=== PATIENT | female | born 1995 | race Caucasian/White ===

== ENCOUNTER 2017-07-25 14:08 | Emergency (ER) | END 2017-07-25 16:19 | disposition home or self-care (01) ==

== ENCOUNTER 2018-02-08 18:18 | Emergency (ER) | END 2018-02-08 22:11 | disposition home or self-care (01) ==

== ENCOUNTER 2018-02-10 21:21 | Emergency (ER) | END 2018-02-11 03:27 | disposition home or self-care (01) ==

== ENCOUNTER 2018-02-13 17:38 | Inpatient (IN) | payer OTHER ==
[~2018-02-13] VITALS: Ht 162.6 cm; Wt 66.8 kg
[~2018-02-13 17:38] MED LIST: ACET500C5 PO; MUPI22OI2 TOP; PREN-93 PO
--- NOTE | 2018-02-13 19:57 | ERD ---
ER Documentation Chief Complaint Chief Complaint recheck for ectopic seen here on the 02/10 HPI This is a 22-year-old female who was seen here on February 10 and diagnosed with ectopic . Dr. feliciano saw her and gave her methotrexate. She is here again for recheck. She states she has no pain. No vaginal bleeding. No fever. No nausea or vomiting. ROS All systems reviewed and are negative except as per history of present illness. Medications Home Meds Active Scripts Vit No.124/Iron/FA ( Vitamin Tablet) 1 Each Tablet, 1 EACH PO DAILY, #30 TAB Prov:NILESHILABANTELMAAR F 02/11/18 Acetaminophen* (Tylophen*) 500 Mg Capsule, 1 CAP PO Q6H PRN for PAIN AND OR ELEVATED TEMP, #20 CAP Prov:PASILABAN,TELMAAR F 02/11/18 Acetaminophen* (Tylophen*) 500 Mg Capsule, 1 CAP PO Q6H PRN for PAIN AND OR ELEVATED TEMP, #15 CAP Prov:SON SCHULTZ MD 02/08/18 Mupirocin* (Bactroban*) 2% -22 Gram Oint...g., 1 APPLIC TOP BID for 7 Days, EA Prov:CARI,LAURENCE C 07/25/17 Allergies Allergies: Coded Allergies: No Known Drug Allergies (Verified Allergy, Unknown, 07/25/17) PMhx/Soc History of Surgery: No (c section x1 ) Anesthesia Reaction: No Hx Neurological Disorder: No Hx Respiratory Disorders: No Hx Cardiac Disorders: No Hx Psychiatric Problems: No Hx Miscellaneous Medical Probl: Yes (ECZEMA) Hx Alcohol Use: No Hx Substance Use: Yes (marijuana ) Hx Tobacco Use: No Smoking Status: Never smoker FmHx Family History: No diabetes Physical Exam Vitals Vital Signs Date Temp Pulse Resp B/P (MAP) Pulse Ox O2 O2 Flow FiO2 Time Delivery Rate 02/13/18 97.6 100 18 117/76 98 17:39 (90) Physical Exam Const: No acute distress Head: Atraumatic Eyes: Normal Conjunctiva ENT: Normal External Ears, Nose and Mouth. Neck: Full range of motion. No meningismus. Resp: Clear to auscultation bilaterally Cardio: Regular rate and rhythm, no murmurs Abd: Soft, non tender, non distended. Results 24 hrs Laboratory Tests Test 02/13/18 18:04 Beta HCG, Quantitative 7716.4 mIU/ml Current Medications Medications Dose Sig/Carmen Start Time Status Last (Trade) Ordered Route PRN Stop Time Admin Dose Reason Admin 1,000 ml @ Q8H IV 02/13/18 Dextrose/Lact 125 mls/hr 23:00 ated Ringer's Procedures/MDM Patient is here for ectopic . She was seen here on [place] for the same. On the her beta hCG was 3668.8 and today it is increased to 7716.4. Ultrasound today continues to show what is most likely an ectopic . I called Dr. zaragoza who states she would come in to see the patient. Dr Feliciano is at bedside with patient and will admit the patient. Departure Diagnosis: Primary Impression: Ectopic Condition: Serious SAL CAI PA-C Feb 13, 2018 19:57
[2018-02-13] MEDS ORDERED: CEFAZOLIN 2 GM/50 ML (PMX) 50 ML IVPB ONE (23:30)
--- NOTE | 2018-02-13 23:35 | CONS ---
Date/Time of Note Date/Time of Note DATE: 02/13/18 TIME: 23:10 Assessment/Plan Assessment/Plan Assessment/Plan 22 years old 2 para 1001 with left ectopic . Patient is currently hemodynamically stable. Her exam is unremarkable, there is no abdominal or pelvic pain or tenderness. She has received 1 dose of methotrexate on 02/10/2018, back to emergency department for follow-up lab. She is currently hemodynamically stable and has no abdominal or pelvic pain. Labs, ultrasound discussed in detail with patient and her partner. Both expressed understanding. All of their questions answered. She admitted to [facility] for performing operative laparoscopy, left salpingostomy or salpingectomy tomorrow. CBC, blood type and screen ordered. Repeat beta-hCG tomorrow morning. Risks of surgery including but not limited to bleeding infection injury to other organs including bowel bladder ureter vessel nerves, blood transfusion, blood transfusion related infection, removal of fallopian tube, possible hysterectomy, any other indicated surgery discussed with patient and her partner. Both expressed understanding, repeat the risks. All of their questions answered. As she is hemodynamically stable she is scheduled for surgery tomorrow at 07:30. Results 24hrs Laboratory Tests Test 02/13/18 18:04 Beta HCG, Quantitative 7716.4 Consultation Date/Type/Reason Admit Date/Time 02/13/2018 Date of Consultation: Feb 13, 2018 Type of Consult Gynecology consult Reason for Consultation Possible ectopic Requesting Provider: SAL CAI PA-C Hx of Present Illness Hx of Present Illness 22 years old 2 para 1001 presented to emergency department for follow-up labs and ultrasound. She was seen at the emergency department on 02/08/2018 and 02/10/2018. She currently states has some nausea. She denies vomiting, shortness of breath, chest pain, headache, vaginal bleeding, any urinary or GI symptoms. She states had a delivery 5 years ago, used Mirena IUD for 5 years and then Jamila IUD inserted in July 2017. LMP is unknown in summary: 02/08/2018: Beta hCG was 2168 02/10/2018: Beta hCG was 3668 02/13/2018: Beta-hCG is 7716 Ultrasound on 02/08/2018: There is no visible intrauterine gestational sac. There is an intrauterine contraceptive device in place, appearing to lie in appropriate position. The right ovary measures 3.3 x 2.5 x 2.3 cm and the left ovary 2.4 x 1.9 x 1.4 cm. Blood flow is evident in both ovaries. No ovarian or adnexal mass or cystic lesion is seen. There is no free fluid. IMPRESSION: 1. No identifiable intrauterine . 2. Intrauterine contraceptive device in typical position. 3. Sonographically unremarkable ovaries and adnexa. Ultrasound on 02/10/18: - 1.0 cm thick-walled cystic structure in the left adnexa which appears to contain a yolk sac. This is suspicious for a tubal ectopic . - Intrauterine device in place within the endometrial canal. There is no intrauterine . No free fluid. Ultrasound on 02/13/2018: FINDINGS: There is no intrauterine gestational sac. The uterus measures 8.9 x 4.5 x 6.4 cm. The IUD is once again noted within the endometrial canal. A thick-walled cystic structure is present in the left adnexa measuring 1.3 x 1.2 x 1.6 cm. Possible yolk sac is once again noted within the gestational sac measuring 0.9 x 0.6 x 1.0 cm. There is no pole visualized. The right ovary appears normal measuring 3.3 x 2.0 x 1.8 cm. The left ovary appears normal measuring 2.8 x 1.8 x 1.3 cm. Color Doppler and pulsed Doppler sonography demonstrate normal flow to the ovaries. There is no other pelvic mass. A small amount of free fluid is present in the cul-de-sac. IMPRESSION: 1. No intrauterine gestational sac. 2. IUD within the endometrial canal. 3. Probable left adnexal ectopic gestation as seen previously. No pole visualized. 4. Small amount of free fluid in the cul-de-sac. Constitutional: no complaints Additional Comments Review of all systems is negative Past Medical History Medications Current Medications Dextrose/Lactated Ringer's 1,000 ml @ 125 mls/hr Q8H IV ; Start 02/13/18 at 23:00 Allergies: Coded Allergies: No Known Drug Allergies (Verified Allergy, Unknown, 07/25/17) Past Surgical History Past Surgical Hx: other ( delivery) Family History Significant Family History: no pertinent family hx Social History Alcohol Use: none Smoking Status: Never smoker Drug Use: none Exam/Review of Systems Vital Signs Vitals Vital Signs Date Temp Pulse Resp B/P (MAP) Pulse Ox O2 O2 Flow FiO2 Time Delivery Rate 02/13/18 97.6 100 18 117/76 98 17:39 (90) Exam Constitutional: alert, oriented Psych: no complaints, nl mood/affect Head: normocephalic, atraumatic Neck: supple, non-tender Respiratory: clear to auscultation Cardiovascular: regular rate and rhythm Gastrointestinal: nl liver, spleen, ascites Genitourinary - Female: other (External genitalia within normal limits. Vagina normal, no bleeding noted. Cervix there is a IUDs string. Uterus top normal, mobile. Adnexa no palpable mass bilateral.) Medications Medications Current Medications Dextrose/Lactated Ringer's 1,000 ml @ 125 mls/hr Q8H IV ; Start 02/13/18 at 23:00 EDU HERNANDEZ Feb 13, 2018 23:20
[2018-02-14] VITALS (18 sets, daily range): BP systolic 100–124; BP diastolic 56–77; PULSE 67–104; RESP 13–25; Ht 162.6 cm; Wt 66.8 kg
--- NOTE | 2018-02-14 00:20 | NUR ---
Admitted 22 y/o female for Dx: Ectopic . NO sob, No resp distress. Afebrile. Denies pain/discomfort. No N/V. Pt oriented to environment, visitation policy, use of telephone and call light. Skin assessment per policy. Called Dr. Sal and made aware of admission. Also to clarify IVF and ATB, per MD start D5Lr @ 125ml/hr and to give the order ATB prior to SX in am (OR). Pt NPO for Operative Laparoscopy, Left salpingostomy or Salpingectomy , pt understand diet. Needs attended and anticipated. Call light within reach. Will continue to monitor pt.
[2018-02-14] MEDS: DEXTROSE 5%-LR 1,000 ML IV SCH ×2 (01:09→07:00)
--- NOTE | 2018-02-14 06:20 | NUR ---
End of shift Report Sleeping on bed in comfortable position. No sob. No resp distress. Afebrile. Denies pain. NPO maintained. For procedure today Operative Laparoscopy, Left Salpingostomy or Salpingectomy with consent. No acute events overnight. Needs attended and anticipated. Will continue to monitor pt. Call light within reach. Will endorse accordingly.
--- NOTE | 2018-02-14 06:56 | NUR ---
Picked up by transporter for procedure today via gurney. Report given to OR Nurse. Preop checklist done. IV line @ Left AC G20 intact and patent. Pt belongings kept at pt room (drawer) will endorse to am shift nurse. Pre op med (Anzef 2G IV ) attached to chart with pt.
[2018-02-14] MEDS ORDERED: DESFLURANE 15 MIN ONE (07:00)
[2018-02-14] MEDS ORDERED: SUCCINYLCHOLINE CHLORIDE 100 MG/5 ML SYG IV ONE ×2 (07:00→09:43)
--- NOTE | 2018-02-14 07:26 | PREAC ---
Date/Time of Note Date/Time of Note DATE: 02/14/18 TIME: 07:25 Anesthesia Eval and Record Evaluation Time Pre-Procedure Interview DATE: 02/14/18 TIME: 07:25 Age 22 Sex female NPO: 8 hrs Preoperative diagnosis Ectopic Planned procedure Laprascopic Salphingectomy Past Medical History Past Medical History: Includes Heme: Anemia Surgery & Anesthesia Issues No known issue Meds Anticoagulation: No Beta Art within 24 hr: No Reason Beta Art not given: Pt. not on B-Art Active Scripts Vit No.124/Iron/FA ( Vitamin Tablet) 1 Each Tablet, 1 EACH PO DAILY, #30 TAB Prov:PASILABANTELMAAR F 02/11/18 Acetaminophen* (Tylophen*) 500 Mg Capsule, 1 CAP PO Q6H PRN for PAIN AND OR EL EVATED TEMP, #20 CAP Prov:PASILABAN,TELMAAR F 02/11/18 Acetaminophen* (Tylophen*) 500 Mg Capsule, 1 CAP PO Q6H PRN for PAIN AND OR ELEVATED TEMP, #15 CAP Prov:SON SCHULTZ MD 02/08/18 Mupirocin* (Bactroban*) 2% -22 Gram Oint...g., 1 APPLIC TOP BID for 7 Days, EA Prov:LAURENCE ALCALA 07/25/17 Current Medications Dextrose/Lactated Ringer's 1,000 ml @ 125 mls/hr Q8H IV Last administered on 02/14/18at 01:09; Admin Dose 125 MLS/HR; Start 02/13/18 at 23:00 Influenza Virus Vaccine Quadrival (Fluzone) 0.5 ml ONCE ONCE IM* ; Start 02/15/18 at 10:00; Stop 02/15/18 at 10:01 Meds reviewed: Yes Allergies Coded Allergies: No Known Drug Allergies (Verified Allergy, Unknown, 07/25/17) Allergies Reviewed: Yes Labs/Studies Labs Reviewed: Reviewed by anesthesiologist Result Diagram: 02/14/18 0054 Laboratory Tests 02/14/18 00:54 test: Positive Pre-procedure Exam Last vitals Vital Signs Date Temp Pulse Resp B/P (MAP) Pulse Ox O2 O2 Flow FiO2 Time Delivery Rate 02/14/18 99.1 71 18 100/58 100 02:18 (72) 12/28/18 Room Air 23:18 Airway: Adequate mouth opening, Adequate thyromental dist Mallampati: Mallampati II Teeth: Normal Lung: Normal Heart: Normal ASA Physical Status ASA physical status: 2 Emergency: E Planned Anesthetic General/MAC: ETT Nerve block: TAP (bilateral) Pre-operative Attestations Prior to commencing anesthesia and surgery, the patient was re-evaluated, there was verification of: *The patient's identity *The results of appropriate recent lab work and preoperative vital signs *The above evaluation not changing prior to induction *Anesthetic plan, risk benefits, alternative and complications discussed with patient/family; questions answered; patient/family understands, accepts and wishes to proceed. MICHELLE PRINCE Feb 14, 2018 07:26
[2018-02-14] MEDS ORDERED: MEPERIDINE 25 MG INJ IV PRN (07:30)
[2018-02-14] MEDS ORDERED: ONDANSETRON 4 MG INJ IV PRN (07:30)
[2018-02-14] MEDS ORDERED: DIPHENHYDRAMINE 50 MG INJ IV PRN (07:30)
[2018-02-14] MEDS ORDERED: FENTAnyl 50 MCG/ML VIAL IV PRN ×3 (07:30)
[2018-02-14] MEDS ORDERED: METOCLOPRAMIDE 10 MG INJ IV PRN (07:30)
[2018-02-14] MEDS ORDERED: HYDROmorphONE 1 MG/5 ML IV SYRINGE IV PRN ×3 (07:30)
[2018-02-14] MEDS ORDERED: ALBUTEROL 0.083% (NEB) 2.5 MG/3 ML AMP HHN PRN (07:30)
--- NOTE | 2018-02-14 07:58 | QN ---
Documentation Comment 22 years old 2 para 1001 with left ectopic . Patient is currently hemodynamically stable. She signed informed consent for operative laparoscopy possible laparotomy,left salpingostomy or salpingectomy or any other indicated surgery. Risks of surgery including but not limited to bleeding infection injury to other organs including bowel bladder ureter vessel nerves, blood transfusion, blood transfusion related infection, removal of fallopian tube, possible hysterectomy, any other indicated surgery discussed with patient and her partner. Both expressed understanding, repeat the risks. All of their questions answered. EDU HERNANDEZ Feb 14, 2018 07:58
[2018-02-14] MEDS ORDERED: ROPIVACAINE 0.5 % 30 ML VIAL ONE (08:04)
[2018-02-14] MEDS ORDERED: FENTAnyl 50 MCG/ML VIAL ONE (08:04)
[2018-02-14] MEDS ORDERED: BUPIVACAINE 0.5% (SDV) 30 ML INJ ONE (08:36)
--- NOTE | 2018-02-14 09:37 | NUR ---
nursing rr Received pt from or not in any distress pt has lap incision to abdomen with bandage clean and dry .Peripad clean no bleeding noted at this time .iv to left ac g20 needle with lr infusing well .Pt has f/c to gravity with clear yellow urine .
[2018-02-14] MEDS ORDERED: GLYCOPYRROLATE 0.4 MG INJ ONE (09:43)
[2018-02-14] MEDS ORDERED: NEOSTIGMINE 3 MG/3 ML SYRINGE ONE (09:43)
[2018-02-14] MEDS ORDERED: LIDOCAINE 100 MG SYRINGE ONE (09:43)
[2018-02-14] MEDS ORDERED: ROCURONIUM 50 MG INJ ONE (09:43)
[2018-02-14] MEDS ORDERED: CEFAZOLIN 1 GM INJ ONE (09:43)
[2018-02-14] MEDS ORDERED: PROPOFOL 20 ML ONE (09:43)
[2018-02-14] MEDS ORDERED: HYDROCODONE/APAP (5/325) TAB PO PRN (10:30)
--- NOTE | 2018-02-14 10:43 | PAC ---
Date/Time of Note Date/Time of Note DATE: 02/14/18 TIME: 10:43 Post-Anesthesia Notes Post-Anesthesia Note Last documented vital signs Vital Signs Date Temp Pulse Resp B/P (MAP) Pulse Ox O2 O2 Flow FiO2 Time Delivery Rate 02/14/18 68 14 124/77 100 Room Air 10:30 (93) 02/14/18 2.0 10:02 02/14/18 98.8 09:58 Activity: WNL Respiratory function: WNL Cardiovascular function: WNL Mental status: Baseline Pain reasonably controlled: Yes Hydration appropriate: Yes Nausea/Vomiting absent: Yes MICHELLE PRINCE Feb 14, 2018 10:43
--- NOTE | 2018-02-14 10:58 | NUR ---
transfer Pt transfer back to room in stable condition ,report given to RN care provided per [facility] standards.
--- NOTE | 2018-02-14 11:10 | NUR ---
Received patient from PACU s/p laparoscopic,and irrigation of left fallopian tube, awake alert, denies pain. Vitals stable, due to void. will start clear liquid diet.
[2018-02-14] MEDS ORDERED: IBUPROFEN 800 MG TAB GTB SCH (14:00)
--- NOTE | 2018-02-14 16:53 | NUR ---
Patient voided in the restroom, tolerated diet, no diZziness, no vomiting noted., vitals stable.
--- NOTE | 2018-02-14 17:30 | NUR ---
PATIENT IS DOING MINGO, NO NAUSEA/ VOMITING NOTED. TOLERATED DIET. PAIN IS TOLERABLE. READY TO GO HOME. DISCHARGE INSTRUCTION PROVIDED TO PATIENT, TO FOLLOW UP WITH DR HERNANDEZ SCHEDULED, QUESTIONS AND CONCERN ANSWERED, VERBALIZED UNDERSTANDING.
--- NOTE | 2018-02-18 16:29 | OPR ---
Date/Time of Note Date/Time of Note DATE: 02/18/18 TIME: 16:20 Operative Report Procedure Date: Feb 14, 2018 Preoperative Diagnosis Left ectopic Postoperative Diagnosis - Left fallopian tube ectopic - Hemoperitoneum Operation/Procedure Performed 1. Operative laparoscopy 2. Removal of ectopic from left fallopian tube 3. Suction irrigation of hemoperitoneum Surgeon see signature line Territory Service Representative dr Kimberly Sapp Anesthesia Type: general Anesthesiologist: MICHELLE PRINCE Estimated Blood Loss: 0 - 10 ml's Transfusion none Specimen Product of conception Grafts/Implants none Complications none Pt Condition Post Procedure: stable Disposition: other Procedure Description Findin- Exam under general anesthesia: Normal external genitalia. Vagina normal. Cervix with no lesion. Uterus normal size, anteverted. Adnexa: No palpable mass bilateral 2- Laparoscopic finding: Normal uterus and right fallopian tube. There was a 1 x 1 cm product of conception was extruding from left fallopian tube fimbria. Both ovaries were normal. There was no endometriosis. There was approximately 100 mL blood in pelvis. INDICATIONS AND HISTORY: 22-year-old 2 para 1001 with left ectopic and increasing beta hCG level. She currently has a Jamila IUD which inserted in July 2017 and would like the IUD not be removed. Physical examination, labs,ultrasound and treatment options discussed with the patient and her partner. She would like to have laparoscopic removal of ectopic . Risks of surgery, including but not limited to infection, Bleeding,injury to other organs (bladder, ureter, vessels, nerves), blood transfusion,blood transfusion related infection,risk of anesthesia, scar formation, removal of uterus, fallopian tubes, ovaries,laparotomy or any other indicated surgery discussed with the patient and her partner. She voiced understanding. All of her questions answered. She signed informed consent. PROCEDURE IN DETAIL: The patient was identified and the procedure verified as operative laparoscopy, removal of adnexal mass. The patient received one gram Ancef 30 minutes prior to surgery. Then general anesthesia without difficulty given. Patient placed in lithotomy position. The patient was then prepped and draped and catheterized in the normal sterile fashion. A weighted speculum was used to visualize the cervix, which was grasped on the anterior lip with a single tooth tenaculum. Then, a HUMI manipulator was inserted. The gloves changed. Then, 0.5 cm umbilical incision after injection of 25 percent Marcaine was made through which a 5 mm trocar was passed. Pneumoperitoneum was established. The second and third skin incision was made at the right and left side of the abdomen. 5 mm trocars were advanced under direct visualization. Then,the peritoneal blood was suction irrigated. The left fallopian tube was identified through its entire length. As noted above, there was a 1 x 1 cm hemorrhagic mass at the fimbria, the mass was grasped with grasper and gradually removed and sent to pathology. There was minimal oozing which controlled with cautery. At the end of the proc edure, there was no active bleeding. Again suction irrigation was performed and all blood and clot moved. Adequate hemostasis was noted. Surgicel was placed on left fimbria. The left and right trocar was removed under direct visualization. Adequate hemostasis was noted from the ancillary trocar site. Then umbilical trocar was removed. Intraaperitoneal CO2 was expressed. The Umbilical incision and right and left side of the abdomen were closed with 4-0 Monocryl. Estimated blood loss from surgery was minimal. Sponge, needle and instrument count were correct X3. There was no intraoperative complications. The uterine manipulator was removed from the vagina with no bleeding. The patient has a Jamila IUD. She desired to keep the IUD. At the end of procedure IUD strings seen. The patient tolerated the procedure well. She was extubated in the operating room and transferred to the recovery room in stable condition. Operative findings discussed in detail with patient and her partner in PACU. I strongly recommend follow-up with her primary Commissioning Engineer and repeat ultrasound to make sure the IUD is in correct position after procedure and have repeat beta hCG. She expressed understanding and will have follow-up with her primary MECHATRONICS ENGINEER. EDU HERNANDEZ Feb 18, 2018 16:29
--- NOTE | 2018-02-18 22:58 | DS ---
DATE OF ADMISSION: 02/13/2018 DATE OF DISCHARGE: 02/14/2018 DIAGNOSIS: Left ectopic . PROCEDURE: Operative laparoscopy, removal of ectopic from the left fallopian tube and suction irrigation of hemoperitoneum. HOSPITAL COURSE: A 22-year-old 2, para 1-0-0-1 with left ectopic , underwent the operative laparoscopy, removal of ectopic from the left fallopian tube. Suction irrigation of hemoperitoneum. Operative finding discussed in detail with the patient and her partner. Both expressed understanding. All of their questions answered. She had an IUD, ultrasound revealed the IUD in correct position. I discussed with the patient needs follow up with her primary gathering worker for repeat ultrasound for location of IUD and also repeat beta hCG until being negative. She expressed understanding and states will have followup with her primary gathering worker. Her postoperative course was unremarkable. The patient discharged home on 02/15/2018 in stable condition with followup with her primary gathering worker in 3 days. Dictated By: EDU TAYLOR/ARACELIS Conf#: [id number] DID#: [id number] SRI
== END 2018-02-14 18:45 | disposition home or self-care (01) | DRG 817 ==
LOC: FTE 17:38 → PP2 22:44
PROVIDERS: ADMIT Obstetrics & Gynecology; ATTEND Obstetrics & Gynecology
PROC: 0WCG4ZZ Extirpation of Matter from Peritoneal Cavity, Percutaneous Endoscopic Approach (ICD-10-PCS; 2018-02-14)
PROC: 10T24ZZ Resection of Products of Conception, Ectopic, Percutaneous Endoscopic Approach (ICD-10-PCS; principal; 2018-02-14 07:30)
DX: O00.102 Left tubal pregnancy without intrauterine pregnancy (principal); K66.1 Hemoperitoneum; Z97.5 Presence of (intrauterine) contraceptive device
CPT/HCPCS: 36415; 76801; 76817; 84702; 85025; 88305; J0690; J1170; J2001; J2175; J2405; J2710; J2795; J3010; J7121

== ENCOUNTER 2018-06-30 08:05 | Emergency (ER) | payer OTHER ==
[~2018-06-30] VITALS: Wt 61.0 kg
[2018-06-30 08:13] VITALS: BP 120/79; PULSE 84; RESP 18
[2018-06-30] MEDS ORDERED: FAMO-96 PO (09:56)
[2018-06-30] MEDS ORDERED: NITR-58 PO (09:56)
--- NOTE | 2018-06-30 12:26 | ERD ---
ER Documentation Chief Complaint Chief Complaint lmp last friday, spotting today HPI 22-year-old female presenting with spotting. Patient has some mild suprapubic tenderness with cramping. She also has some mild epigastric pain. Patient had ectopic 5 months ago and is concerned that she may be possibly with an ectopic again. Patient is using control via the ParaGard IUD. Denies medical problems. NKDA. Surgical history of ectopic surgery and . Social history smokes marijuana. ROS All systems reviewed and are negative except as per history of present illness. Medications Home Meds Active Scripts Famotidine* (Pepcid*) 20 Mg Tablet, 20 MG PO BID for 4 Days, #30 TAB Prov:DOLLY BLANCA PA-C 06/30/18 Nitrofurantoin Monohyd Macrocr* (Macrobid*) 100 Mg Capsr, 100 MG PO BID for 14 Days, CAP Prov:DOLLY BLANCA PA-C 06/30/18 Vit No.124/Iron/FA ( Vitamin Tablet) 1 Each Tablet, 1 EACH PO DAILY, #30 TAB Prov:NILESHILABANTELMAAR F 02/11/18 Acetaminophen* (Tylophen*) 500 Mg Capsule, 1 CAP PO Q6H PRN for PAIN AND OR ELEVATED TEMP, #20 CAP Prov:PASILABAN,TELMAAR F 02/11/18 Mupirocin* (Bactroban*) 2% -22 Gram Oint...g., 1 APPLIC TOP BID for 7 Days, EA Prov:LAURENCE ALCALA 07/25/17 Allergies Allergies: Coded Allergies: No Known Drug Allergies (Verified Allergy, Unknown, 07/25/17) PMhx/Soc History of Surgery: Yes (C Section X1 (2013)) Anesthesia Reaction: No Hx Neurological Disorder: No Hx Respiratory Disorders: No Hx Cardiac Disorders: No Hx Psychiatric Problems: No Hx Miscellaneous Medical Probl: No Hx Alcohol Use: No Hx Substance Use: Yes Hx Tobacco Use: No FmHx Family History: No diabetes, No coronary disease, No other Physical Exam Vitals Vital Signs Date Temp Pulse Resp B/P (MAP) Pulse Ox O2 O2 Flow FiO2 Time Delivery Rate 06/30/18 97.9 84 18 120/79 99 08:13 (93) Physical Exam GENERAL: The patient is well-appearing, well-nourished, in no acute distress CHEST: Clear to auscultation bilaterally. There are no rales, wheezes or rhon chi. HEART: Regular rate and rhythm. No murmurs, clicks, rubs or gallops. ABDOMEN:Soft, nontender and nondistended. Good bowel sounds. No rebound or guarding. No gross peritonitis. No gross organomegaly or masses. BACK: No CVAT Result Diagram: 06/30/18 0852 06/30/18 0852 Results 24 hrs Laboratory Tests Test 06/30/18 08:52 06/30/18 09:01 White Blood Count 11.3 10^3/ul Red Blood Count 4.19 10^6/ul Hemoglobin 12.8 g/dl Hematocrit 38.7 % Mean Corpuscular Volume 92.4 fl Mean Corpuscular Hemoglobin 30.5 pg Mean Corpuscular Hemoglobin Concent 33.1 g/dl Red Cell Distribution Width 13.0 % Platelet Count 311 10^3/UL Mean Platelet Volume 9.5 fl Immature Granulocytes % 0.300 % Neutrophils % 66.9 % Lymphocytes % 23.8 % Monocytes % 7.4 % Eosinophils % 1.2 % Basophils % 0.4 % Nucleated Red Blood Cells % 0.0 /100WBC Immature Granulocytes # 0.030 10^3/ul Neutrophils # 7.6 10^3/ul Lymphocytes # 2.7 10^3/ul Monocytes # 0.8 10^3/ul Eosinophils # 0.1 10^3/ul Basophils # 0.1 10^3/ul Nucleated Red Blood Cells # 0.0 10^3/ul Urine Color YELLOW Urine Clarity SLIGHTLY CLOUDY Urine pH 5.0 Urine Specific [place] 1.019 Urine Ketones NEGATIVE mg/dL Urine Nitrite NEGATIVE mg/dL Urine Bilirubin NEGATIVE mg/dL Urine Urobilinogen 1+ mg/dL Urine Leukocyte Esterase 1+ Moe/ul Urine Microscopic RBC 4 /HPF Urine Microscopic WBC 6 /HPF Urine Squamous Epithelial Cells FEW /HPF Urine Bacteria FEW /HPF Urine Mucus MANY /HPF Urine Hemoglobin 1+ mg/dL Urine Glucose NEGATIVE mg/dL Urine Total Protein NEGATIVE mg/dl Sodium Level 142 mmol/L Potassium Level 4.2 mmol/L Chloride Level 106 mmol/L Carbon Dioxide Level 27 mmol/L Anion Gap 9 Blood Urea Nitrogen 12 mg/dl Creatinine 0.83 mg/dl Est Glomerular Filtrat Rate mL/min > 60 mL/min Glucose Level 106 mg/dl Calcium Level 9.8 mg/dl Total Bilirubin 0.7 mg/dl Direct Bilirubin 0.00 mg/dl Indirect Bilirubin 0.7 mg/dl Aspartate Amino Transf (AST/SGOT) 22 IU/L Alanine Aminotransferase (ALT/SGPT) 26 IU/L Alkaline Phosphatase 76 IU/L Total Protein 8.5 g/dl Albumin 4.7 g/dl Globulin 3.80 g/dl Albumin/Globulin Ratio 1.23 Lipase 46 U/L POC Beta HCG, Qualitative NEGATIVE Procedures/MDM DIAGNOSTIC IMAGING REPORT Patient: MAYUR REYNOSO : 1995 Age: 22 Sex: F MR #: [id number] DOS: 06/30/18832 Ordering MD: BRITT BLANCA PA-C Location: [facility] Room/Bed: PROCEDURE: ULTRASOUND LIMITED ABDOMEN CLINICAL INDICATION: 22-year-old female with abdominal pain. TECHNIQUE: Multiple sonographic of the right upper quadrant of the abdomen were obtained. The images were reviewed on a PACS workstation. COMPARISON: None. FINDINGS: The pancreas is partially visualized and is otherwise without abnormal echogenicity. The liver displays normal echogenicity. The liver measures 13.0 cm in length. No evidence of intrahepatic biliary ductal dilatation is seen. The portal and hepatic veins are unremarkable. The gallbladder demonstrates no wall thickening, sludge, nor stones. No pericholecystic fluid is seen. The common bile duct measures 1.0 mm and is not dilated. The right kidney displays normal echogenicity. The right kidney measures 8.9 cm in maximal length. No caliectasis or hydronephrosis is seen. No free fluid is seen. IMPRESSION: Unremarkable right upper quadrant abdominal ultrasound. DIAGNOSTIC IMAGING REPORT Patient: MAYUR REYNOSO : 1995 Age: 22 Sex: F MR #: [id number] DOS: 06/30/18832 Ordering MD: BRITT BLANCA PA-C Location: [facility] Room/Bed: PROCEDURE: ULTRASOUND PELVIS CLINICAL INDICATION: 22-year-old female with abdominal/pelvic pain. The patient has a history of prior left-sided salpingectomy with questionable oophorectomy for ectopic . TECHNIQUE: Multiple sonographic images of the pelvis were obtained utilizing a transabdominal and endovaginal technique. The images were reviewed on a PACS w orkstation. COMPARISON: None. FINDINGS: The uterus is visualized and measures 6.4 x 4.8 x 5.0 cm. There is an intrauterine device within the endometrial canal. The endometrial echo complex i s otherwise within normal limits and measures 2.9 mm. There is no evidence for free fluid. The right ovary has a normal echotexture and measures 1.8 x 1.4 x 1.8 cm. There is flow identified within the right ovary. The left ovary was not visualized. No adnexal masses are noted. IMPRESSION: 1. Intrauterine device. 2. The left ovary was not visualized. MDM: 22-year-old female presenting with spotting. Patient ultrasounds within normal limits. Patient does have findings consistent with urinary tract infection. Patient urine is negative. I have low suspicion for ectopic . I have low suspicion for choledocholithiasis, cholecystitis or pancreatitis. Patient is discharged with strict ER precautions and told to follow-up with primary care within 1 to 2 days for close evaluation. Patient is told symptoms change or worsen to return immediately to the ER. All questions answered at discharge Departure Diagnosis: Primary Impression: Epigastric pain Additional Impression: UTI (urinary tract infection) Condition: Stable Patient Instructions: Understanding Urinary Tract Infections (UTIs), Epigastric Pain (Uncertain Cause) Referrals: MIGUEL ANGEL DEVINE DO Additional Instructions: FOLLOW UP WITH YOUR PRIMARY CARE PHYSICIAN TOMORROW.Return to this facility if you are not improving as expected. DOLLY BLANCA PA-C June 30, 2018 12:26
== END 2018-06-30 10:20 | disposition home or self-care (01) ==
LOC: FTE 08:05
DX: N39.0 Urinary tract infection, site not specified (principal); R10.2 Pelvic and perineal pain
CPT/HCPCS: 36415; 76705; 76856; 80053; 81001; 81025; 83690; 85025; Z7502

== ENCOUNTER 2018-10-01 21:43 | Emergency (ER) | payer OTHER ==
[~2018-10-01] VITALS: Ht 157.5 cm; Wt 55.0 kg
[~2018-10-01 21:43] MED LIST changes: +FAMO-96 PO; +HC30CR25 TOP; +NITR-58 PO
[2018-10-01 21:46] VITALS: BP 110/72; PULSE 75; RESP 16; Ht 157.5 cm; Wt 55.0 kg
--- NOTE | 2018-10-01 23:50 | ERD ---
ER Documentation Chief Complaint Chief Complaint INSECT BITE RIGHT FOREARM. SWELLING NOTED. HPI Patient is a 22-year-old female with no medical problems who presents with a possible insect bite. The patient had symptoms which started today on her right forearm which is slightly swollen and itchy. The patient says that maybe she got bit by a spider. She has had no treatment as of yet. She did not see anything bite her. She does not remember the name of her primary doctor. Upon review of old medical record the patient has multiple visits for various complaints. ROS All systems reviewed and are negative except as per history of present illness. Medications Home Meds Active Scripts Hydrocortisone* Topical (Hydrocortisone* Topical) 2.5%-28.3 Gm Cream..g., 1 APPLIC TOP BID, #1 TUB Prov:YANY CLINE MD 10/01/18 Famotidine* (Pepcid*) 20 Mg Tablet, 20 MG PO BID for 4 Days, #30 TAB Prov:DOLLY BLANCA PA-C 06/30/18 Nitrofurantoin Monohyd Macrocr* (Macrobid*) 100 Mg Capsr, 100 MG PO BID for 14 Days, CAP Prov:DOLLY BLANCA PA-C 06/30/18 Vit No.124/Iron/FA ( Vitamin Tablet) 1 Each Tablet, 1 EACH PO DAILY, #30 TAB Prov:MARSHA RAY 02/11/18 Acetaminophen* (Tylophen*) 500 Mg Capsule, 1 CAP PO Q6H PRN for PAIN AND OR ELEVATED TEMP, #20 CAP Prov:MARSHA RAY 02/11/18 Mupirocin* (Bactroban*) 2% -22 Gram Oint...g., 1 APPLIC TOP BID for 7 Days, EA Prov:LAURENCE ALCALA 07/25/17 Allergies Allergies: Coded Allergies: No Known Drug Allergies (Verified Allergy, Unknown, 07/25/17) PMhx/Soc History of Surgery: Yes (C Section X1 (2013)) Anesthesia Reaction: No Hx Neurological Disorder: No Hx Respiratory Disorders: No Hx Cardiac Disorders: No Hx Psychiatric Problems: No Hx Miscellaneous Medical Probl: No Hx Alcohol Use: No Hx Substance Use: Yes Hx Tobacco Use: No Smoking Status: Never smoker FmHx Family History: No diabetes Physical Exam Vitals Vital Signs Date Temp Pulse Resp B/P (MAP) Pulse Ox O2 O2 Flow FiO2 Time Delivery Rate 10/01/18 98.2 75 16 110/72 99 21:46 (85) Physical Exam Const: No acute distress Head: Atraumatic Eyes: Normal Conjunctiva ENT: Normal External Ears, Nose and Mouth. Neck: Full range of motion. No meningismus. Resp: Clear to auscultation bilaterally Cardio: Regular rate and rhythm, no murmurs Abd: Soft, non tender, non distended. Normal bowel sounds Skin: Mild swelling and erythema to the right forearm in a circular fashion which is potentially related to an allergic reaction Back: No midline or flank tenderness Ext: No cyanosis, or edema Neur: Awake and alert Psych: Normal Mood and Affect Procedures/MDM Patient is a 22-year-old female who presents with a possible localized allergic reaction. This may be related to a spider bite or other insect bite. The patient will be given a prescription of hydrocortisone cream. I doubt abscess or cellulitis at this time. I doubt infection. The patient will be discharged but can return for any worsening symptoms. The patient understands the plan and is okay for discharge at this time. She will need to follow-up with her primary doctor within 1 week. Departure Diagnosis: Primary Impression: Allergic reaction Encounter type: initial encounter Qualified Codes: T78.40XA - Allergy, unspecified, initial encounter Condition: Fair Patient Instructions: First Aid: Allergic Reactions Additional Instructions: Call your primary care doctor TOMORROW for an appointment during the next 1 WEEK.Tell the wash plant operator that you were referred from this facility.See the doctor sooner or return here if your condition worsens before your appointment time. YANY CLINE MD Oct 01, 2018 23:49
== END 2018-10-01 23:01 | disposition home or self-care (01) ==
LOC: FTE 21:43
DX: M79.9 Soft tissue disorder, unspecified (principal)
CPT/HCPCS: 99282